=== PATIENT | female | born 1960 | race Caucasian/White ===

== ENCOUNTER 2020-07-03 19:53 | Emergency (ER) | payer SELFPAY ==
--- NOTE | ~2020-07-03 | XR_ITS ---
EXAMINATION: XR foot LT min 3V DATE: 07/03/2020 20:26 INDICATION: Left foot pain and swelling. TECHNIQUE: 4 views of left foot were obtained. COMPARISON: None. FINDINGS: There is moderate hallux valgus. No fracture. There is mild osteoarthritis of first metatar sophalangeal joint and some of the interphalangeal joints and midfoot joints. There is an enthesophyt e at plantar aspect of calcaneal tuberosity. IMPRESSION: 1. Moderate hallux valgus. 2. Mild polyarticular osteoarthritis. Reviewed, dictated and finalized at location A.
[2020-07-03 20:01] VITALS: BP 123/62; PULSE 62; RESP 18; TEMP 36.5; O2SAT 98
--- NOTE | 2020-07-03 21:09 | ED.LOWEXIN ---
HPI - Extremity Injury (Lower) General Chief Complaint: Extremity Injury, Lower Stated Complaint: foot pain Time Seen by Provider: 07/03/20 20:12 Source: patient and family Mode of arrival: wheelchair Limitations: no limitations History of Present Illness HPI Narrative: 60-year-old with a history of hypothyroidism, depression, CAD on Plavix here with complaints of swelling to her left foot for past few hours. Patient states that she accidentally dropped a desk on her foot at home. complaint: foot injury (left) Onset (ago): hour(s) (1) Type of Injury: blunt Place: home Severity: moderate Relieving factors: nothing Exacerbating factors: nothing Context: direct blow Associated symptoms: swelling Other symptoms: none Related Data Home Medications Medication Instructions Recorded Confirmed Plavix 07/03/20 aspirin 81 mg PO DAILY 07/03/20 bupropion HCl 100 mg PO BID 07/03/20 citalopram 20 mg PO DAILY 07/03/20 levothyroxine 25 mcg PO DAILY 07/03/20 sertraline 50 mg PO DAILY 07/03/20 Allergies Allergy/AdvReac Type Severity Reaction Status Date / Time Penicillins Allergy Rash Verified 07/03/20 20:06 Review of Systems Review of Systems: All systems reviewed & are unremarkable except as noted in HPI and below Constitutional: Constitutional: Reports no additional constitutional complaints Eyes: Eyes: Reports no additional eye complaints Cardiovascular: Cardiovascular: Reports no additional cardiovascular complaints Respiratory: Respiratory: Reports no additional respiratory complaints Musculoskeletal: Musculoskeletal: Reports as per HPI Neurologic: Reports system reviewed and no additional complaints, except as documented PMFSH Social History Social History Gender identity (if verbalized by the patient): Female Sexual Orientation (if Verbalized by the Patient): Straight or Heterosexual Exam Narrative: Exam Narrative: GENERAL: Well-appearing, well-nourished, and in no acute distress. HEAD: Normocephalic, atraumatic. EYES: PERRLA and EOMI.. NECK: Supple. CHEST: Clear to auscultation. No respiratory distress. HEART: Regular rate and rhythm. No murmur heard. Normal peripheral pulses. ABDOMEN: Soft, nontender, nondistended, normal active bowel sounds. EXTREMITIES: Normal range of motion. Moderate soft tissue swelling on the dorsum of the left foot SKIN: Warm, dry, no rash. NEURO: No focal deficits. Alert and oriented x3. PSYCH: Normal mood and affect. Course Course Emergency Course: Inform patient about her x-ray findings. Advised ice and take pain medication as prescribed Vital Signs Vital signs: Vital Signs Temperature 36.5 C 07/03/20 20:01 Pulse Rate 62 07/03/20 20:01 Respiratory Rate 18 07/03/20 20:01 Blood Pressure 123/62 07/03/20 20:01 Pulse Oximetry 98 07/03/20 20:01 Temperature 36.5 C 07/03/20 20:01 Pulse Rate 62 07/03/20 20:01 Respiratory Rate 18 07/03/20 20:01 Blood Pressure 123/62 07/03/20 20:01 Pulse Oximetry 98 07/03/20 20:01 MDM - Extremity Injury (Lower) Imaging Data Radiologist's impression: ITS Impressions Foot X-Ray 07/03/20 20:30 IMPRESSION: 1. Moderate hallux valgus. 2. Mild polyarticular osteoarthritis. Discharge Plan Discharge Clinical Impression: Contusion of foot, left Patient Disposition: Home, Self-Care Condition: Stable Instructions: Hematoma (ED) Additional Instructions: Elevate, ice , take pain meds as prescribed. Prescriptions: New hydrocodone-acetaminophen 5-325 mg tablet 1 tablet PO Q6H PRN (Reason: pain) Qty: 14 RF: 0 hydrocodone-acetaminophen 5-325 mg tablet 1 tablet PO Q6H PRN (Reason: pain) Qty: 14 RF: 0 No Action levothyroxine 25 mcg Tablet 25 mcg PO DAILY RF: 0 bupropion HCl 100 mg Tablet 100 mg PO BID RF: 0 citalopram 20 mg Tablet 20 mg PO DAILY RF: 0 aspirin 81 mg Tablet 81
[2020-07-03] MEDS: HYDROcodone/acetaminophen (*CRX) 5-325 MG TABLET 1 TAB PO (21:34)
--- NOTE | 2020-07-03 21:54 | PC.NURSE ---
kalyan wrap applied to left ankle. pt has good CMS post wrap
[2020-07-03 21:55] VITALS: BP 110/65; PULSE 80; RESP 16; O2SAT 99
== END 2020-07-03 22:00 | disposition home or self-care (01) ==
PROVIDERS: Emergency Provider Family Medicine; PCP Internal Medicine
DX: S90.32XA Contusion of left foot, initial encounter (principal); E03.9 Hypothyroidism, unspecified; I25.10 Atherosclerotic heart disease of native coronary artery without angina pectoris; Z79.02 Long term (current) use of antithrombotics/antiplatelets; Z79.82 Long term (current) use of aspirin; F32.9 Major depressive disorder, single episode, unspecified; M20.12 Hallux valgus (acquired), left foot; M19.072 Primary osteoarthritis, left ankle and foot; W20.8XXA Other cause of strike by thrown, projected or falling object, initial encounter
CPT/HCPCS: 73630; 99283; A9270